=== PATIENT | male | born 1960 | race Caucasian/White ===

== ENCOUNTER 2022-12-08 08:00 | Outpatient (RCR) | payer BC, SELFPAY | END 2023-06-08 23:59 | disposition home or self-care (01) | PROVIDERS: PCP Family Medicine; Visit Provider Student in an Organized Health Care Education/Training Program | DX: M25.562 Pain in left knee (principal); Z51.89 Encounter for other specified aftercare | CPT/HCPCS: 97110; 97161 ==

== ENCOUNTER 2023-06-02 11:00 | Emergency (ER) | payer BC, SELFPAY ==
[2023-06-02] VITALS (9 sets, daily range): BP systolic 126–134; BP diastolic 76–83; PULSE 54–72; RESP 20; TEMP 35.9; O2SAT 91–97; BMI 34.2
--- NOTE | 2023-06-02 11:17 | ED.GENADULT ---
HPI - General Adult General Chief complaint: Dizziness/Vertigo Stated complaint: Weakness in limbs, nausea Time Seen by Provider: 06/02/23 11:14 History of Present Illness HPI narrative: patient was on a walk with his dog anf got nauseated and weak, felt like his arms were heavy and was dizzy, felt like things were off 63-year-old man presenting to the emergency department after nearly 3 hours ago walking his dog started to feel what he demonstrates with a fist in the epigastric area, then feeling generally weak symptoms spreading and arms and some into legs. [place] a little lightheaded and not actually dizzy, sat down on the bench with his dog also want to break and symptoms in the abdomen in particular lessened. Mild nausea. Does not report a history of rapid heart rate during this time for does have a history of AFib 2 episodes. Notes a history of an umbilical hernia does not sound as this is the area of pain. As take calcium channel rolan and anticoagulant in form of rivaroxaban. symptoms all remaining a little bit but overall improved. He thought maybe this might be related to gastritis. Sounds like had a vaguely similar episode ultimately diagnosed as gastritis. Did have a big [place] donor kabob meal last night. EKG reviewed prior seeing patient. I do not appreciate acute ischemic changes. Rate of 73 in normal sinus rhythm Related Data Home Medications Medication Instructions Recorded Confirmed atorvastatin 80 mg tablet 80 mg PO DAILY 06/02/23 06/02/23 diltiazem HCl 240 mg 240 mg PO DAILY 06/02/23 06/02/23 capsule,extended release 24 hr doxazosin 8 mg tablet 8 mg PO DAILY 06/02/23 06/02/23 fluorouracil 5 % topical cream applic topical 06/02/23 glipizide 5 mg tablet, extended 5 mg PO DAILY 06/02/23 06/02/23 release 24 hr ketoconazole 2 % topical cream 1 applic topical 06/02/23 lisinopril 20 1 tab PO DAILY 06/02/23 06/02/23 mg-hydrochlorothiazide 25 mg tablet metformin 1,000 mg tablet 1,000 mg PO BID 06/02/23 06/02/23 potassium chloride 20 mEq 20 meq PO DAILY 06/02/23 06/02/23 tablet,extended release(part/cryst) rivaroxaban 20 mg tablet (Xarelto) 20 mg PO DAILY 06/02/23 06/02/23 Allergies Allergy/AdvReac Type Severity Reaction Status Date / Time phenobarbital AdvReac Nausea Verified 06/02/23 11:11 Review of Systems Status of ROS: Reports: 6 or more systems reviewed and unremarkable except as noted in History and below [facility] Social History Smoking Status: Never smoker How often do you have a drink containing alcohol: never AUDIT-C Alcohol total score: 0 Non-prescribed substance use: denies use Exam Narrative: Exam Narrative: Pleasant. NAD. Pleasantly conversant. Breathing easily. Lungs appear to be clear. Heart in a regular rate and rhythm. Bilateral 1+ pretibial pitting edema. Extremities are well perfused. There is no JVD. Skin is with a [place] facial complexion. Abdomen is overweight soft and nontender. No masses appreciated other than the soft 3 cm swelling in the umbilicus that is easily reducible consistent with umbilical hernia. Cranial nerves 2-12 intact. Moving all extremities without difficulty. Const: Vital Signs, click to edit/add: Vital Signs - 24 hr 06/02/23 11:11 Temperature 96.7 F L Pulse Rate [Right Pulse Oximeter] 72 Respiratory Rate 20 Blood Pressure [Le ft Upper Arm] 128/79 Pulse Oximetry 95 Oxygen Delivery Me thod Room Air Documenting provider has reviewed patient's vital signs: yes Course Vital Signs Vital signs: Initial Vital Signs Temperature 96.7 F L 06/02/23 11:11 Temperature Source Temporal Artery Scan 06/02/23 11:11 Pulse Rate 72 06/02/23 11:11 Respiratory Rate 20 06/02/23 11:11 Blood Pressure 128/79 06/02/23 11:11 Blood Pressure Mean 95 06/02/23 11:11 Blood Pressure Position Sitting 06/02/23 11:11 Pulse Oximetry 95 06/02/23 11:11 Oxygen Delivery Method Room Air 06/02/23 11:11 Vital Signs Temperature 96.7 F L 06/02/23 11:11 Pulse Rate 72 06/02/23 11:11 Respiratory Rate 20 06/02/23 11:11 Blood Pressure 128/79 06/02/23 11:11 Pulse Oximetry 95 06/02/23 11:11 Oxygen Delivery Method Room Air 06/02/23 11:11 Temperature 96.7 F L 06/02/23 11:11 Pulse Rate 54 L 06/02/23 14:33 Respiratory Rate 20 06/02/23 11:11 Blood Pressure 126/83 06/02/23 13:32 Pulse Oximetry 97 06/02/23 14:33 Oxygen Delivery Method Room Air 06/02/23 11:11 Medical Decision Making MDM Narrative Medical decision making narrative: Certainly could be cardiac in etiology. Will monitor a particular for arrhythmia for a time. EKG as above. Check labs. I suppose gastrointestinal event like gas, heartburn and/or esophageal spasm to some degree could have contributed to some vasovagal type event. Will vascular disruption. Check D-dimer in this regard. Pneumothorax? Perhaps passed gallstone? Biliary colic? No neurological sequelae at this point. Chest x-ray reviewed by me was WNL. Given L of normal saline. No further events during monitoring the emergency department Overall improved. See patient discharge plan. Lab Data Lab results reviewed: Yes I reviewed the patient's lab results Labs: Lab Results 06/02/23 06/02/23 Range/Units 12:00 14:13 D-Dimer Quant (PE/DVT) < 0.27 (0.00-0.50) ug/ml Sodium 140 (135-149) mmol/L Potassium 3.5 L (3.6-5.1) mmol/L Chloride 104 (96-114) mmol/L Carbon Dioxide 27 (20-32) mmol/L BUN 17 (7-30) mg/dL Creatinine 1.0 (0.5-1.5) mg/dL Estimated Creat Clear 80.53 Estimated GFR 85 ml/min Glucose 109 (60-115) mg/dL Calcium 8.8 (8.4-10.6) mg/dL Total Bilirubin 0.7 (0.1-1.5) mg/dL Direct Bilirubin 0.0 (0.0-0.5) mg/dL AST 23 (12-35) U/L ALT 24 (4-50) U/L Alkaline Phosphatase 75 (40-150) U/L Troponin I < 0.01 L (0.01-0.04) ng/mL C-Reactive Protein < 0.5 L (0.5-1.0) mg/dL NT-Pro-B Natriuret Pep 120 pg/mL Total Protein 7.1 (6.0-8.3) g/dL Albumin 4.0 (3.3-5.0) g/dL Lipase 49 (23-300) U/L POC Troponin I 0.00 L 0.01 (0.01-0.04) ng/ml Discharge Plan Discharge Clinical Impression: Malaise, Vasovagal episode Patient Disposition: Home, Self-Care Condition: Improved Additional Instructions: continue to stay well hydrated. As discussed, I wonder if this epigastric/ stomach area discomfort may have created a vasovagal situation with near syncope. Did not see evidence of a cardiac or liver/gallbladder problem today. Consider a follow-up with your primary care provider for further cardiac evaluation. And otherwise keep playing soccer as long as you are able. Prescriptions: No Action atorvastatin 80 mg tablet 80 mg PO DAILY diltiazem HCl 240 mg capsule,extended release 24hr 240 mg PO DAILY fluorouracil 5 % cream topical glipizide 5 mg tablet extended release 24hr 5 mg PO DAILY doxazosin 8 mg tablet 8 mg PO DAILY potassium chloride 20 mEq tablet,ER particles/crystals 20 meq PO DAILY metformin 1,000 mg tablet 1,000 mg PO BID lisinopril-hydrochlorothiazide 20-25 mg tablet 1 tab PO DAILY ketoconazole 2 % cream 1 applic topical Xarelto 20 mg tablet 20 mg PO DAILY Follow Up/Referrals: Jeevan Smith MD [Primary Care Provider] - Stand Alone Forms: Dispatch Info Instructions
--- NOTE | 2023-06-02 11:45 | CRLHL7_ITS ---
For Patients: As a result of the Cures Act, medical imaging exams and procedure reports are released immediately into your electronic medical record. You may view this report before your referring provider. If you have questions, please contact your health care provider. INDICATION: Low sternal/Epigastric pressure TECHNIQUE: Chest 1 views. COMPARISON: July 10, 2021 FINDINGS: Cardiovascular and mediastinum: Heart size and vasculature are normal in caliber and appearance. Lungs and pleural spaces: Lungs are clear. No sign of infiltrate. No sign of pleural effusion. No pneumothorax. Bones and soft tissues: No significant findings. IMPRESSION: No evidence of acute cardiopulmonary process. Dictated by Pawan Solorio MD @ 06/02/2023 2:33:11 PM (Electronically Signed)
[2023-06-02] MEDS: 0.9 % SODIUM CHLORIDE 1000 ml 1,000 ML IV (12:05)
[2023-06-02 12:32] LABS: Chloride* 104 mmol/L (96-114)
[2023-06-02 12:33] LABS: Potassium* 3.5 mmol/L (3.6-5.1); Sodium* 140 mmol/L (135-149)
[2023-06-02 12:35] LABS: Est. Creatinine Clearance* 80.53; Estimated Glomerular Filt Rate 85 ml/min
[2023-06-02 12:36] LABS: Alanine Aminotransferase* 24 U/L (4-50); Alkaline Phosphatase* 75 U/L (40-150); Aspartate Amino Transferase* 23 U/L (12-35); Bilirubin Total* 0.7 mg/dL (0.1-1.5); Blood Urea Nitrogen* 17 mg/dL (7-30); Calcium* 8.8 mg/dL (8.4-10.6); Carbon Dioxide* 27 mmol/L (20-32); Glucose* 109 mg/dL (60-115); Lipase* 49 U/L (23-300); Total Protein* 7.1 g/dL (6.0-8.3)
[2023-06-02 12:51] LABS: C Reactive Protein* < 0.5 mg/dL (0.5-1.0); NT Pro B Type NatriureticPept* 120 pg/mL; Troponin I* < 0.01 ng/mL (0.01-0.04)
[2023-06-02 12:58] LABS: D Dimer Quantitative* < 0.27 ug/ml (0.00-0.50)
[2023-06-02 14:33] LABS: Troponin, Point-of-Care* 0.01 ng/ml (0.01-0.04)
== END 2023-06-02 14:50 | disposition home or self-care (01) ==
PROVIDERS: Emergency Provider Family Medicine; PCP Family Medicine
DX: R53.81 Other malaise (principal); R55 Syncope and collapse
CPT/HCPCS: 36415; 71045; 80048; 80076; 83690; 83880; 84484; 85379; 86140; 93005; 96360; 96361; 99284; 99285; J7030